=== PATIENT | female | born 1985 | race Caucasian/White ===

== ENCOUNTER 2019-12-18 16:03 | Outpatient (CLI) | payer OTHER, SELFPAY ==
--- NOTE | ~2019-12-18 | US_ITS ---
EXAMINATION: US OB <= 14 weeks fetus DATE: 12/18/2019 16:49 INDICATION: Uncertain dates. TECHNIQUE: Real-time transabdominal pelvic ultrasound was performed. COMPARISON: None. FINDINGS: The uterus measures 12.0 x 5.9 x 8.9 cm. There is an intrauterine gestational sac. The crown ru mp length measures 4.6 cm, which correlates with an estimated gestational age of 11 weeks and 2 day(s ) (+/-) 1 week(s) and 0 day(s). heart motion is identified measuring 157 beats per minute (bpm) by M-mode Doppler. The right ovary measures 4.1 x 2.3 x 3.2 cm. The left ovary measures 4.7 x 1.7 x 4.2 cm. There is no free fluid in the pelvis. IMPRESSION: 1. Single living intrauterine gestation with estimated date of delivery of 07/06/2020. Reviewed, dictated and finalized at location A. IMPRESSION: 1. Single living intrauterine gestation with estimated date of delivery of 07/06.
[2019-12-18 17:18] LABS: Hematocrit 36.8 % (37.0-47.0); Hemoglobin 12.2 g/dL (12.0-15.0); Mean Corpuscular HGB Conc 33.2 g/dl (32-36); Mean Corpuscular Hemoglobin 31.2 pg (26-34); Mean Corpuscular Volume 94.1 fl (80-100); Mean Platelet Volume 11.4 fl (7.4-10.4); Platelet Count Result 284 k/mm3 (150-375); Red Blood Count 3.91 M/mm3 (4.2-5.4); Red Cell Distribution Width 12.9 % (11.5-14.5); White Blood Count 16.7 K/mm3 (4.5-10.0)
[2019-12-18 18:10] LABS: HIV 1/2 Ab P24 Ag Result Negative (Negative)
[2019-12-18 19:51] LABS: Hepatitis B Surface Antigen Negative (Negative); Rubella IgG Antibody 66.6 IU/ML
[2019-12-21 11:12] LABS: Rapid Plasma Reagin Non-Reactive (NonReactive)
== END 2019-12-18 16:04 | disposition home or self-care (01) ==
PROVIDERS: Visit Provider Obstetrics & Gynecology
DX: Z36.89 Encounter for other specified antenatal screening (principal)
CPT/HCPCS: 36415; 76801; 85027; 86592; 86703; 86762; 86850; 86900; 86901; 87340; G0432

== ENCOUNTER 2020-02-09 16:39 | Outpatient (CLI) | payer OTHER, SELFPAY ==
--- NOTE | ~2020-02-09 | US_ITS ---
EXAMINATION: US OB /maternal detail DATE: 02/09/2020 18:00 INDICATION: anatomic survey. TECHNIQUE: Real-time ultrasound of the pelvis was performed. COMPARISON: Ultrasound 12/18/2019 FINDINGS: There is a single living fetus in variable presentation. The placenta is anterior. heart rate is 139 beats per minute (bpm). The amniotic fluid is subjectively normal. The following biometric data were obtained: Biparietal diameter (BPD): 4.1 cm; head circumference (HC): 15.7 cm; abdominal circumference (AC): 13 .0 cm; femur length (FL): 2.8 cm. These measurements are concordant. Estimated weight is 247 g +/- 37 g, which correlates with 30th percentile when 07/06/20 is used a s estimated date of delivery. As single measurements, these parameters are each equal to the following estimated gestational ages: BPD: 18 weeks 3 days. HC: 18 weeks 4 days. AC: 18 weeks 4 days. FL: 18 weeks 5 days. estimated gestational age based solely on measurements from this exam is 18 weeks 4 days +/- 1 weeks 2 days. The cerebral ventricles, cerebellum, cisterna magna, nuchal fold, and visualized portions of the spin e are normal. The heart is normal. The diaphragm, stomach, kidneys, and bladder are normal. There are two umbilical arteries to yield a 3-vessel cord. The nasal bone length is normal. The nose and lips are normal. The cord insertion is normal. IMPRESSION: 1. Single living fetus in variable presentation. 2. Estimated weight is 247 g +/- 37 g, which correlates with 30th percentile when 07/06/20 is us ed as estimated date of delivery. This date was set by ultrasound on 12/18/2019. 3. Normal anatomic survey. Reviewed, dictated and finalized at location B. STICS TECHNICIAN IMPRESSION: 1. Single living fetus in variable presentation. 2. Estimated weight is 247 g +/- 37 g, which correlates with 30th percen tile when 07/06/20 is used as estimated date of delivery. This date was set by vonnie argueta on 12/18/2019. 3. Normal anatomic survey.
== END 2020-02-09 16:40 | disposition home or self-care (01) ==
PROVIDERS: Visit Provider Obstetrics & Gynecology
DX: Z36.9 Encounter for antenatal screening, unspecified (principal); Z3A.18 18 weeks gestation of pregnancy
CPT/HCPCS: 76805

== ENCOUNTER 2020-03-30 07:16 | Outpatient (CLI) | payer OTHER, SELFPAY ==
[2020-03-30 08:53] LABS: Hematocrit 32.9 % (37.0-47.0); Hemoglobin 10.8 g/dL (12.0-15.0)
[2020-03-30 09:07] LABS: Glucose 1 Hour PP 50gm Dose 104 mg/dL
[2020-03-30 09:46] LABS: HIV 1/2 Ab P24 Ag Result Negative (Negative)
== END 2020-03-30 07:17 | disposition home or self-care (01) ==
PROVIDERS: Visit Provider Obstetrics & Gynecology
DX: Z34.92 Encounter for supervision of normal pregnancy, unspecified, second trimester (principal); Z3A.22 22 weeks gestation of pregnancy
CPT/HCPCS: 36415; 82947; 85014; 85018; 86703; G0432

== ENCOUNTER 2020-06-29 07:03 | Outpatient (CLI) | payer OTHER, SELFPAY ==
[2020-06-29 07:45] VITALS: BP 109/72; PULSE 88
[2020-06-29 08:00] VITALS: BP 104/77; PULSE 82
[2020-06-29 08:15] VITALS: BP 111/77; PULSE 89
[2020-06-29 08:30] VITALS: BP 113/71; PULSE 88
[2020-06-29] MEDS: TERBUTALINE SULFATE 1 MG/ML VIAL 0.25 MG SUB-Q (08:55)
--- NOTE | 2020-06-29 09:13 | WPDOBADMIT ---
Obstetrics - Admit Note Admission Note: record reviewed. Additions to the history and/or subsequent changes in the physical findings follow. 34 y/o G1 at 39 weeks with breech presentation, here for ECV. AVSS NST reactive TOCO: no contractions ABD soft, notnender, gravid EXT nontender Bedside ultrasound shows xochitl breech presentation with head on maternal left, fundal placenta, adequate AFV. Procedure: After appropriate informed consent was obtained, she received terbutaline 0.25 mg SC x 1. ECV was attempted. The breech was elevated out of the maternal pelvis and a forward (counterclockwise) somersault was attempted, followed by a reverse somersault, then forward again. The cardiac motion was normal throughout. No significant change in the lie was accomplished. The procedure was terminated. She was observed on L&D on NST for 30 min, then sent home to schedule a primary delivery next week. We reviewed instructions and precautions in detail. She tolerated the procedure well today.
[2020-06-29 09:15] VITALS: BP 105/84; PULSE 79
[2020-06-29 09:30] VITALS: BP 122/65; PULSE 85
== END 2020-06-29 09:50 | disposition home or self-care (01) ==
LOC: ANHOBOP 07:06 → ANHOBPP 07:09
PROVIDERS: Visit Provider Obstetrics & Gynecology
DX: O32.1XX0 Maternal care for breech presentation, not applicable or unspecified (principal); Z3A.39 39 weeks gestation of pregnancy
CPT/HCPCS: 99199; J3105

== ENCOUNTER 2020-07-05 12:18 | Outpatient (CLI) | payer OTHER, SELFPAY ==
[2020-07-05 13:05] LABS: Hematocrit 36.3 % (37.0-47.0); Mean Corpuscular HGB Conc 33.1 g/dl (32-36); Mean Corpuscular Hemoglobin 29.8 pg (26-34); Mean Corpuscular Volume 90.1 fl (80-100); Mean Platelet Volume 11.8 fl (7.4-10.4); Platelet Count Result 217 k/mm3 (150-375); Red Blood Count 4.03 M/mm3 (4.2-5.4); Red Cell Distribution Width 13.7 % (11.5-14.5); White Blood Count 11.8 K/mm3 (4.5-10.0)
[2020-07-05 13:55] LABS: Rapid Plasma Reagin Non-Reactive (NonReactive)
== END 2020-07-05 12:19 | disposition home or self-care (01) ==
PROVIDERS: Visit Provider Obstetrics & Gynecology
DX: Z34.93 Encounter for supervision of normal pregnancy, unspecified, third trimester (principal); Z3A.00 Weeks of gestation of pregnancy not specified
CPT/HCPCS: 36415; 85027; 86592; 86850; 86900; 86901

== ENCOUNTER 2020-07-06 08:35 | Inpatient (IN) | payer OTHER, SELFPAY ==
[2020-07-06] VITALS (46 sets, daily range): BP systolic 92–126; BP diastolic 29–80; PULSE 47–97; RESP 12–18; TEMP 36.1–36.8; O2SAT 97–100; BMI 30.8
--- NOTE | 2020-07-06 08:35 | LDADM ---
This patient, Jody Briceño, was admitted to Labor/Delivery/Recovery 120 on 07/06/20 at 08:35. Plans for labor, pain management and were discussed with patient. Patient/family oriented to hospital policies and general routines including ID bracelet, bed and alarms, visiting hours, pain management, procedures, bathroom and other care routines, personal items, smoking policy, room service/diet and guest tray routines, infant security routines, and visiting hours. Patient/Family are encouraged to report perceived risks to care and to ask questions if they do not understand what they are told or what they should do. See OBIX for further documentation.
[2020-07-06] MEDS: LACTATED RINGERS 1,000 ML 125 ML IV CONT ×3 (09:38→12:26)
[2020-07-06] MEDS: ceFAZolin 2 GM/D5W 50 ML 2 GM/50 ML BAG IVPB (10:25)
--- NOTE | 2020-07-06 10:43 | WPDANESEPPF ---
Anes - Initial Pre Proc Eval Procedure: Operation Date: 07/06/20 10:30 Proposed Procedures p Primary Section - Devan Campo MD Date/Time: 07/06/20 10:43 Surgeon: Devan Campo MD Pre Op Diagnosis: c/s Patient Data Age: 34 Gender: F Height: 5 ft 3 in Weight: 79 kg Last Vital Signs Pulse 85 07/06/20 09:04 BP 126/80 07/06/20 09:04 Allergies Allergy/AdvReac Type Severity Reaction Status Date / Time Penicillins Allergy Intermediate Rash Verified 06/08/20 12:46 Home Medications Medication Instructions Recorded Confirmed Type PNV cmb#95-ferrous fumarate-FA 1 tablet PO DAILY 07/06/20 07/06/20 History [] magnesium 1 tablet PO DAILY 07/06/20 07/06/20 History Laboratory Tests 07/06/20 09:27 HIV 1&2 Ab/P24 Ag 4thGn Pending Patient hx anesthesia problems: none Family hx anesthesia problems: none PMFSH Family History Family History Other Unknown family medical history Social History Social History Smoking status: Never smoker Second hand tobacco smoke exposure: Yes Substance use: never Spiritual care concerns: No Anes - Eval Final PreProcedure Day of Procedure 07/06/20 10:43 Patient weight: overweight Heart: regular rate and rhythm Lungs: clear to auscultation Airway: Mallampati scale class II Neurological: alert and oriented Last oral intake: >/= 8 hours ASA classification: II Emergent: no Anesthetic plan: proceed Anesthesia type and monitoring: regional spinal and standard monitoring Informed Consent: The patient's anesthetic plan and its attendant risks and benefits were discussed with the patient/family/POA. Questions were solicited and answers provided to the satisfaction of the patient/family/POA.
[2020-07-06 10:55] LABS: HIV 1/2 Ab P24 Ag Result Negative (Negative)
--- NOTE | 2020-07-06 11:15 | P.HP_ITS ---
H&P: HPI History of Present Illness Date/Time: 07/06/20 11:15 34 y/o G1 at 40 weeks with xochitl breech presentation. ECV failed last week. She is here for scheduled . GBS neg. Chief Complaint: Here for c section Review of Systems Review of Systems: All systems reviewed & are unremarkable except as noted in HPI and below PMFSH Family History Family History Other Unknown family medical history Social History Social History Smoking status: Never smoker Second hand tobacco smoke exposure: Yes Substance use: never Spiritual care concerns: No Meds Home Medications and Allergies Home Medications Medication Instructions Recorded Confirmed Type PNV cmb#95-ferrous fumarate-FA 1 tablet PO DAILY 07/06/20 07/06/20 History [] magnesium 1 tablet PO DAILY 07/06/20 07/06/20 History Allergies Allergy/AdvReac Type Severity Reaction Status Date / Time Penicillins Allergy Intermediate Rash Verified 06/08/20 12:46 Vital Signs Vital Signs - 24 hr 07/06/20 09:04 Pulse Rate 85 Blood Pressure 126/80 Exam Const: Orientation/consciousness: patient oriented x3 Other: Well- developed, well-nourished female in no acute distress. Neck: Thyroid: thyroid normal Lymphatic: no lymphadenopathy noted (in neck, axilla or inguinal nodes) Resp: Effort & Inspection: normal respiratory effort Auscultation: clear to auscultation bilaterally Cardio: Rate: regular rate Rhythm: regular rhythm Heart sounds: S1 normal heart sound present and S2 normal heart sound present GI: Other: ABD: Soft, nontender, gravid NST reactive. TOCO: no contractions. No guarding or rebound tenderness. No hepatosplenomegaly. Bedside ultrasound exam confirms breech presentation. : General: Yes no CVA tenderness Other: Cervix: ft/thick Back/Spine/Pelvis: Back: no CVA tenderness Skin: General skin exam: normal color and no rashes or lesions noted Neuro: General: patient oriented x3 Extrem: Other: Extremities: nontender with no edema Psych: Mental Status: mental status grossly normal Affect: normal affect Assessment and Plan Assessment and plan (1) Breech presentation: Code(s): O32.1XX0 - Maternal care for breech presentation, not applicable or unspecified Status: Acute Assessment and Plan: A: IUP at 40 weeks with persistent breech presentation. P: Offered primary delivery. She understands risks of surgery to include risks of anesthesia, risks of pain, infection, bleeding, blood products, thromboembolic phenomena and damage to adjacent structures such as bowel, bladder, ureters, blood vessels and nerves. She understands all these risks and elects to proceed with surgery.
--- NOTE | 2020-07-06 11:18 | WPDHPUPDATE1 ---
History and Physical Update Update Date/Time: 07/06/20 11:18 History and Physical has been reviewed, including an updated exam of the patient. There are NO changes in the patient's condition. Risks, benefits, and alternatives have been discussed and questions answered. Patient agrees to proceed with procedure.
--- NOTE | 2020-07-06 12:06 | P.PCNOB_ITS ---
OB - Delivery Note Procedure Delivery date: 07/06/20 Procedure: Procedures Operation Date: 07/06/20 10:30 <No data on this case meets the specified criteria> Primary low transverse delivery Delivery monitor: external FHT and external uterine Route of delivery: Specimen: Yes (cord blood) Quantitative Blood Loss (ml): 380 Anesthesia type: Spinal Disposition: PACU Complications: None Narrative: The patient was taken to the operating room where she was prepared and draped in the usual sterile fashion in dorsal supine position with a leftward tilt. She received cefazolin preoperatively. Spinal anesthesia was found to be adequate. A Pfannenstiel skin incision was made and carried through to the underlying layer of the fascia. The fascia was incised in the midline and the incision was extended laterally. The fascia was dissected free of the underlying rectus muscles. The rectus muscles were in the midline. The peritoneum was identified, tented up and entered sharply. The peritoneal incision was extended superiorly and inferiorly with good visualization of the bladder. The bladder blade was placed. The vesicouterine peritoneum was identified, tented up and entered sharply. The incision was extended laterally and the bladder flap was developed. The bladder blade was replaced. The uterus was then incised sharply in a transverse fashion along the lower uterine se gment. The incision was extended laterally. The infant's breech was delivered to the level of the scapulae. The arms were swept across the chest and delivered. The head was gently flexed and easily delivered. The nose and mouth were bulb suctioned. After a delay, the cord was clamped and cut. The infant was handed off the field. Cord blood was collected. The placenta was removed manually and was passed off the field. The uterus was exteriorized and cleared of all clots and debris. The uterine incision was reapproximated using 0 Monocryl in a running, locked fashion. A second, imbricating layer of the same suture was placed in a running fashion. Excellent hemostasis resulted as did excellent reapproximation of the normal anatomy. The uterus was returned the abdomen. The pelvis was irrigated copiously with warmed normal saline. Rigorous hemostasis was assured. The fascial layer was reapproximated using 0 Vicryl in a running fashion. The skin was closed with a running, subcuticular stitch of 4 0 Vicryl. Dermaflex was applied externally. Sponge, lap, needle and instrument counts were correct. The patient was taken to the recovery room in stable condition. The infant went to the nursery in stable condition. I was present and scrubbed the entire procedure. [place] Baby Date of : 07/06/20 Time of : 11:37 Weeks of gestation at delivery: 40 Infant gender: Female Weight (pounds): 7 Weight (ounces): 15 presentation: xochitl breech Placenta delivery description: Manual Removal and Normal Configuration cord vessel description: 3 Vessels and Delayed Cord Clamping score one minute: 9 score five minutes: 9
--- NOTE | 2020-07-06 12:09 | PM.OBDSVD ---
DS: Admitting Diagnosis Admitting Diagnosis Admitting Diagnosis: IUP at 40 weeks Persistent xochitl breech presentation DS: Discharge Diagnosis Discharge Diagnosis (1) Breech presentation: Code(s): O32.1XX0 - Maternal care for breech presentation, not applicable or unspecified Status: Acute OB - DS: Summary OB Procedures : Ultrasound OB Procedures Intrapartum: OB Procedures: : None Peripartum Data Procedures: Procedures Operation Date: 07/06/20 10:30 <No data on this case meets the specified criteria> Primary low transverse delivery DS: Data Data Completed and Pending Labs on day of discharge: Labs from last 24 hours 07/06/20 09:27 HIV 1&2 Ab/P24 Ag 4thGn Negative Discharge Plan Discharge Attending physician on discharge: Devan Campo Consulting providers: Ramos Desouza Discharging Clinician: Devan Campo Patient Disposition: Home, Self-Care Activity: may shower, may drive after 2 weeks and pelvic rest Diet: regular Wound Care Instructions: incision open to air Discharge Instructions: Education: Mom and Baby Guide Given to: Mother Follow-Up: Call your delivering provider's office for an appointment to be seen in: 4 Weeks Mom and baby should come to the [facility] for the follow-up appointment. Appointment Date/Time: July 11, 2020 at 10:00 am What to expect at your follow-up visit: Blood Pressure Check Physical Assessment Call [phone] if you are unable to keep your appointment time. BREAST CARE: * Wear a snug supportive bra. * For engorgement discomfort: Breast Feeding: * Apply warm moist washcloths * Express milk as needed to relieve engorgement * Wear loose clothing * For sore nipples: * Identify correct latch-on * Apply warm moist washcloths before and after nursing * Air dry nipples after nursing * May apply Lansinoh cream to nipples ABDOMINAL INCISION: (if applicable) * Allow incision to air dry * Do NOT use lotions for powders on your incision * When showering, allow soap and water to run over the incision, but do not wash incision EPISIOTOMY/PERINEAL CARE: * Until bleeding stops, use your mata bottle after urinating * Change your pad frequently throughout the day * No tub baths until seen by your physician - You may shower ACTIVITY: * Rest as much as possible. * Do not exercise or lift anything heavier than your baby (such as laundry or other children.) For about 2 weeks * Avoid stairs or driving as much as possible. Do not drive while taking * Do not put anything into the vagina. No douching, tampons, or sexual activity until seen by physician. NOTIFY PHYSICIAN IF YOU HAVE ANY QUESTIONS OR IF ANY OF THE FOLLOWING SYMPTOMS OCCUR: * If your incision becomes red, swollen, or more painful than what you have experienced in the hospital. * If your vaginal bleeding becomes foul smelling. * If your vaginal bleeding becomes more heavy than a period or if your bleeding changes from pink to bright red. However, you may pass an occasional walnut-sized clot once or twice for the first week . * If you experience a sharp, shooting pain in your calves. * If you discover a hard, reddened area on your breast or if you experience flu-like symptoms. DIET: * Eat regular, well-balanced meals. * Drink plenty of fluids daily. If , drink to thirst. Call or return if temperature above 100.4? F, increased abdominal pain, increased vaginal bleeding or any new problems. Patient Instructions: (DC) Stand Alone Forms: General Discharge Information Follow-up/Referrals: Devan Campo MD [Physician] - 4 Weeks Discharge Medications: New ibuprofen 600 mg tablet 600 mg PO Q6H PRN (Reason: cramps) Qty: 30 RF: 0 hydrocodone-acetaminophen 5-325 mg tablet
[2020-07-06] MEDS: KETOROLAC 30 MG/ML VIAL (*BKC) IV PUSH ×2 (13:56→19:59)
[2020-07-06] MEDS: OXYTOCIN 30 UNITS/NS 500 ML 30 UNITS/500 ML BAG 125 UNITS IV CONT (14:02)
[2020-07-06] MEDS: ONDANSETRON INJ 4 MG/2 ML VIAL IV PUSH ×2 (15:01→19:59)
[2020-07-06] MEDS: diphenhydrAMINE HCl INJ 50 MG/ML VIAL 25 MG IV PUSH ×2 (15:38→20:00)
--- NOTE | 2020-07-06 16:45 | OBPPTRN ---
1428 Patient transferred to post room # 282 via stretcher. Support person present. Oriented to unit, room, information board, rooming in, admission packet and security measures. Patient verbalizes understanding.
[2020-07-06] MEDS: HYDROcodone/acetaminophen (*CRX) 5-325 MG TABLET 1 TAB PO (16:52)
[2020-07-06] MEDS: DEXTROSE 5%/0.45% SOD CHL 1,000 ML 125 ML IV CONT (18:32)
--- NOTE | 2020-07-06 23:30 | PC.NURSE ---
Breast pump provided due to ineffective feeding. Instructions given on breast pump care and usage, pumping schedule, nipple care, and collection and storage of breast milk. Encouraged [id number], breast massage and manual expression to stimulate supply. Pumping log provided and reviewed. Assessed patient for correct flange size, placement and draw. Patient verbalizes and demonstrates understanding of instructions.
[2020-07-07 03:40] VITALS: BP 101/61; PULSE 79; RESP 18; TEMP 36.7
[2020-07-07] MEDS: KETOROLAC 30 MG/ML VIAL (*BKC) IV PUSH (03:40)
[2020-07-07] MEDS: HYDROcodone/acetaminophen (*CRX) 5-325 MG TABLET 1 TAB PO ×6 (03:41→21:31)
[2020-07-07 05:40] LABS: Basophils Percent Auto 0.2 % (0.2-1.2); Eosinophils Percent Auto 0.2 % (0-4.4); Hematocrit 34.2 % (37.0-47.0); Immature Granulocyte Absolute 0.12 K/mm3 (0.00-0.031); Immature Granulocyte Percent A 0.7 % (0-0.5); Lymphocytes Absolute Auto 2.25 K/mm3 (0.9-3.2); Lymphocytes Percent Auto 12.7 % (18.3-44.2); Mean Corpuscular HGB Conc 32.2 g/dl (32-36); Mean Corpuscular Hemoglobin 29.5 pg (26-34); Mean Corpuscular Volume 91.7 fl (80-100); Mean Platelet Volume 11.5 fl (7.4-10.4); Monocytes Absolute Auto 0.7 K/mm3 (0.1-0.6); Monocytes Percent Auto 3.9 % (2.6-8.5); Neutrophils Absolute Auto 14.6 K/mm3 (1.3-6.7); Neutrophils Percent Auto 82.3 % (45.5-73.1); Platelet Count Result 183 k/mm3 (150-375); Red Blood Count 3.73 M/mm3 (4.2-5.4); Red Cell Distribution Width 13.7 % (11.5-14.5); White Blood Count 17.8 K/mm3 (4.5-10.0)
--- NOTE | 2020-07-07 07:43 | WPDANLDPN2 ---
Anes-Prog Note L&D Date/Time: 07/07/20 07:43 Comfortable throughout: section Neuraxial method: spinal Epidural/Spinal procedure site: clean & non-tender Neuro status: Neuro function grossly intact. Cardiovascular status: normal Respiratory status: normal Airway patency: baseline Mental status: baseline Post-Op hydration status: normal Vital Signs: Last Vital Signs Temp 36.7 C 07/07/20 03:40 Pulse 79 07/07/20 03:40 Resp 18 07/07/20 03:40 BP 101/61 07/07/20 03:40 Pulse Ox 100 07/06/20 23:15 Pain score (VAS): 3 I/O: Intake & Output 07/06/20 07/06/20 07/07/20 15:59 23:59 07:59 Intake Total 2150 250 1000 Output Total 1023 850 550 Balance 1127 -600 450 Post-procedural complaints: none Patient feedback: Patient satisfied with anesthetic care.
--- NOTE | 2020-07-07 07:43 | WPDANLDNPN2 ---
Anes-Prog Note L&D-Neuraxial Date/Time: 07/07/20 07:43 Neuraxial medications: intrathecal PF morphine Opiod-related complaints: none Patient feedback: Patient satisfied with post-operative pain management.
[2020-07-07 08:30] VITALS: BP 110/64; PULSE 75; RESP 18; TEMP 36.3; O2SAT 100
[2020-07-07] MEDS: DOCUSATE SODIUM 100 MG CAPSULE PO ×2 (08:57→17:01)
[2020-07-07] MEDS: MULTIVIT/MIN/PREN/FOL AC/IRON TABLET 1 TAB PO (08:57)
--- NOTE | 2020-07-07 10:00 | PC.NURSE ---
Consult with pt.,mother reports infant has been sleepy and not latching, she has initiated pumping and supplementation. Infant would use a nipple shield for attempts. Mother states has latched for the last two feeding without shield. Mother is pumping without difficulties or discomfort using hospital pump. Reviewed infants may be sleepy the first few days and will begin to show increased feeding cues and eagerness for feeding after 24 hours. Mother states she will continue to supplement and pump until she is more comfortable with infant feeding consistence. Reviewed infant feeding cues, frequencies, duration of feedings, feeding elimination flow sheet, and signs of adequate intake. Nipple care reviewed. Instructed mother to call out for RN assistance if she is unable to latch for feeding or she has discomfort with nursing. Instructed feeding should be initiated three hours from start of last feeding or if feeding cues are noted before. Mother voiced understanding of information shared.
[2020-07-07] MEDS: IBUPROFEN 600 MG TABLET PO ×3 (11:18→23:45)
--- NOTE | 2020-07-07 12:59 | PM.OBPNVD ---
OB - PN: Subj Subjective Date/time seen: 07/07/20 12:59 Narrative: Pain OK. Tolerating diet. OB - PN: Obj Data Labs CBC & Chem 7: 07/07/20 04:38 Labs: Laboratory Results - last 24 hr 07/07/20 04:38 WBC 17.8 H RBC 3.73 L Hgb 11.0 L Hct 34.2 L MCV 91.7 MCH 29.5 MCHC 32.2 RDW 13.7 Plt Count 183 MPV 11.5 H Immature Gran % (Auto) 0.7 H Neut % (Auto) 82.3 H Lymph % (Auto) 12.7 L [place] % (Auto) 3.9 Eos % (Auto) 0.2 Baso % (Auto) 0.2 Lymph # (Auto) 2.25 [place] # (Auto) 0.7 H Eos # (Auto) 0.0 Baso # (Auto) 0.0 Abs Immat Gran (auto) 0.12 H Absolute Neuts (auto) 14.6 H Absolute Nucleated RBC 0.0 Nucleated RBC % 0.0 OB - PN A/P Plan Comments: A: POD#1, doing well. P: Routine care. Exam Narrative: Exam Narrative: AVSS I/O OK ABD soft, nontender, fundus firm. Incision c/d/i. EXT nontender
[2020-07-07] MEDS: SIMETHICONE 80 MG TAB.CHEW PO (17:01)
[2020-07-07 20:30] VITALS: BP 113/60; PULSE 82; RESP 16; TEMP 36.3
[2020-07-08] MEDS: HYDROcodone/acetaminophen (*CRX) 10-325 MG TABLET 1 TAB PO ×5 (01:05→17:06)
[2020-07-08] MEDS: IBUPROFEN 600 MG TABLET PO ×3 (05:50→20:15)
--- NOTE | 2020-07-08 07:22 | P.PNOB_ITS ---
OB - PN: Subj Subjective Date/time seen: 07/08/20 07:22 Interval history: Patient is tearful this AM. She states she is sleep deprived and has not gotten much rest. She is ambulating. She is tolerating PO. She reports some mild incision pain. Her bleeding is normal and she reports normal lochia. She denies fever, chills, N/V. She has passed flatus. Patient comments: no complaints and pain well controlled; no flatus present OB - PN: Obj Data Labs CBC & Chem 7: 07/07/20 04:38 OB - PN A/P Plan day: 1 Plan: routine care Comments: patient tearful and tired this AM pt is requesting to stay a whole 4 nights, will re-evaluate tomorrow AM continue routine PP care Time Spent With Patient Time: Total time spent is greater than 50% in coordination of care (as do cumented) at patient's floor/unit and/or counseling patient: Time with patient: less than 15 minutes Review of Systems Constitutional: Constitutional: Reports no additional constitutional complaints Cardiovascular: Cardiovascular: Reports no additional cardiovascular c omplaints Respiratory: Respiratory: Reports no additional respiratory complaints Gastrointestinal: Gastrointestinal: Reports no additional gastrointestinal complaints Genitourinary: Genitourinary: Reports no additional female genitourinary complaints Exam Const: General: comfortable and no acute distress Resp: Effort & Inspection: normal respiratory effort Auscultation: clear to auscultation bilaterally Cardio: Rate: regular rate GI: GI Palp: Yes Soft to palpation and Yes Tenderness to palpation present (GI) (appropriately tender around incision ) Auscultation: normal bowel sounds Other: fundus firm and below umbilicus Incision C/D/I Urinary Catheter: Urinary Catheter: urine clear Psych: Appearance: grossly normal Mental Status: mental status grossly normal Affect: normal affect
--- NOTE | 2020-07-08 07:30 | PC.NURSE ---
PT introductions made and plan of care discussed per post op c section, pain management, breast feeding, daily care activities. PT tearful saying she had a rough night and was unable to sleep. PT encouraged to nap today, shower and put her own clothes on and walk halls. PT supported in her emotions being sad and tired and overwhelmed and offered assistance to watch baby through out the day for napping and shower etc. and explained hormonal changes and milk supply coming in. PT talkative and eating breakfast and states she is feeling better . Education today will be one to one using discussion and mother baby guide. no barriers to learning noted. PT verbalized understanding
[2020-07-08 08:40] VITALS: BP 109/75; PULSE 75; RESP 18; TEMP 36.4; O2SAT 99
[2020-07-08] MEDS: DOCUSATE SODIUM 100 MG CAPSULE PO ×2 (10:20→17:06)
[2020-07-08] MEDS: SIMETHICONE 80 MG TAB.CHEW PO ×4 (10:22→20:15)
[2020-07-08 10:30] VITALS: PULSE 75; RESP 18; O2SAT 99
--- NOTE | 2020-07-08 14:39 | PC.NURSE ---
Addendum entered by Lesa Lucas RN 07/08/20 14:43: pt seen at 0815 Original Note: Consult with pt., mother is very teary today. Mother states infant has been able to independently latch infant without nipple shield. Mother requested to nursing during the night to be bottle fed so she could rest. Mother states she feels very guilty about this and was unable to sleep and had nightmares. Assured mother she is normal and tired. Assured mother was fine and she needed rest and can nurse today if she chooses. Suggested mother have breakfast, rest and allow infant to nursery for her to sleep. Reviewed infant is WNL on all signs of weight, output and jaundice at this time.
[2020-07-08] MEDS: MULTIVIT/MIN/PREN/FOL AC/IRON TABLET 1 TAB PO (19:19)
[2020-07-08 20:00] VITALS: BP 110/63; PULSE 83; RESP 16; TEMP 36.8
[2020-07-08] MEDS: HYDROcodone/acetaminophen (*CRX) 5-325 MG TABLET 1 TAB PO ×2 (20:15→23:45)
[2020-07-09] MEDS: IBUPROFEN 600 MG TABLET PO ×2 (02:25→09:28)
[2020-07-09] MEDS: HYDROcodone/acetaminophen (*CRX) 5-325 MG TABLET 1 TAB PO ×2 (02:25→05:55)
[2020-07-09 08:00] VITALS: BP 125/80; PULSE 77; RESP 16; TEMP 36.8; O2SAT 100
--- NOTE | 2020-07-09 08:12 | P.DS_ITS ---
DS: Admitting Diagnosis Admitting Diagnosis Admitting Diagnosis: intrauterine at term OB - DS: Summary OB Procedures : None OB Procedures Intrapartum: OB Procedures: : None Peripartum Data Infant Delivery Method: Section Procedures: Procedures Operation Date: 07/06/20 10:30 Actual Procedures Side Surgeon p Primary Section Not Applicable Devan Campo MD complications: none Status at Discharge Functional status at discharge: independent ambulation Overall status at discharge: patient is progressing back to baseline Time Spent with Patient Time attestation: Total time spent providing and/or coordinating discharge services: Time spent: Less than 30 minutes Exam Const: General: comfortable and no acute distress Resp: Effort & Inspection: normal respiratory effort Auscultation: clear to auscultation bilaterally Cardio: Rate: regular rate GI: Inspection: non-distended GI Palp: Yes Soft to palpation, No Firmness to palpation present (GI), Yes Tenderness to palpation present (GI) (mild tenderness over incision ) and No Guarding due to palpation present (GI) Auscultation: normal bowel sounds Psych: Appearance: grossly normal Mental Status: mental status grossly normal Discharge Plan Discharge Attending physician on discharge: eDvan Campo Discharging Clinician: Devan Campo Patient Disposition: Home, Self-Care Activity: may shower, may drive after 2 weeks and pelvic rest Diet: regular Wound Care Instructions: incision open to air Discharge Instructions: Call or return if temperature above 100.4? F, increased abdominal pain, increased vaginal bleeding or any new problems. Stand Alone Forms: General Discharge Information Follow-up/Referrals: Devan Campo MD [Physician] - 4 Weeks Discharge Medications: New ibuprofen 600 mg tablet 600 mg PO Q6H PRN (Reason: cramps) Qty: 30 RF: 0 hydrocodone-acetaminophen 5-325 mg tablet 1 - 2 tablet PO Q6H PRN (Reason: pain) Qty: 30 RF: 0 acetaminophen [Mapap (acetaminophen)] 325 mg Tablet 650 mg PO Q6H PRN (Reason: Mild Pain (1-3)) Qty: 30 RF: 0 ibuprofen 600 mg Tablet 600 mg PO Q6H PRN (Reason: Cramping) Qty: 30 RF: 0 Continued magnesium Tablet 1 tablet PO DAILY RF: 0 PNV cmb#95-ferrous fumarate-FA [] 28 mg iron- 800 mcg Tablet 1 tablet PO DAILY RF: 0 Date of admission: 07/06/20 08:35 Primary Care Provider: PHYSICIAN,[facility] Admitting Provider: Devan Campo Attending physician on admission: Devan Campo Condition: Stable
[2020-07-09] MEDS: DOCUSATE SODIUM 100 MG CAPSULE PO (09:28)
[2020-07-09] MEDS: MULTIVIT/MIN/PREN/FOL AC/IRON TABLET 1 TAB PO (09:28)
[2020-07-09] MEDS: SIMETHICONE 80 MG TAB.CHEW PO (09:28)
[2020-07-09] MEDS: HYDROcodone/acetaminophen (*CRX) 10-325 MG TABLET 1 TAB PO (09:29)
[2020-07-11 10:10] VITALS: BP 115/81; PULSE 87; RESP 16; TEMP 36.9; O2SAT 100
== END 2020-07-09 13:35 | disposition home or self-care (01) | DRG 788 ==
LOC: ANHLDR 12:10 → ANHOB2 07-09 08:28 → ANHLDR 07-12 09:57 → ANHOB2 07-12 09:57
PROVIDERS: Admitting Provider Obstetrics & Gynecology; Visit Provider Student in an Organized Health Care Education/Training Program
PROC: 10D00Z1 Extraction of Products of Conception, Low, Open Approach (ICD-10-PCS; CPT 59514; principal; 2020-07-06 10:30)
DX: O32.1XX0 Maternal care for breech presentation, not applicable or unspecified (principal); G89.18 Other acute postprocedural pain; Z3A.40 40 weeks gestation of pregnancy; Z37.0 Single live birth
CPT/HCPCS: 36415; 85025; 86703; A9270; G0432; J0131; J0690; J1200; J1885; J2274; J2370; J2405; J2590; J7120

== ENCOUNTER 2021-02-21 09:18 | Emergency (ER) | payer OTHER, SELFPAY ==
[2021-02-21 09:29] VITALS: BP 119/76; PULSE 73; RESP 18; TEMP 37.1; O2SAT 100
--- NOTE | 2021-02-21 10:31 | ED.URI ---
HPI - URI/Sore Throat General Chief Complaint: Upper Respiratory Infection Stated Complaint: Congestion Time Seen by Provider: 02/21/21 10:32 Source: patient and RN notes reviewed Mode of arrival: ambulatory Limitations: no limitations History of Present Illness HPI Narrative: 35-year-old female presents concern for hoarse voice, nasal drainage, intermittent cough. Reports 1 week history of symptoms. Reports taking evpp-bny-debimys medication with relief of symptoms, however she continues to have a hoarse voice. She has been vaccinated for Covid. She denies shortness of breath, body aches, chills, fever, sweats, nausea, vomiting, diarrhea. MD elicited complaint: cough Related Data Home Medications Medication Instructions Recorded Confirmed PNV cmb#95-ferrous fumarate-FA 1 tablet PO DAILY 07/06/20 07/06/20 [] Iud 02/21/21 fluoxetine [Prozac] 10 mg PO DAILY 02/21/21 02/21/21 Allergies Allergy/AdvReac Type Severity Reaction Status Date / Time Penicillins Allergy Intermediate Rash Verified 06/08/20 12:46 Review of Systems Review of Systems: CONSTITUTIONAL: Denies malaise, chills, sweats, or fever. EYES: Denies visual changes, redness, or discharge. ENT: Reports rhinorrhea, congestion, hoarse voice. Denies sinus pain, otalgia and sore throat. CARDIOVASCULAR: Denies chest pain, palpitations, or edema. RESPIRATORY: Reports occasional cough. Denies dyspnea. GASTROINTESTINAL: Denies abdominal pain, nausea, vomiting, diarrhea SKIN: Denies rash or itching. MUSCULOSKELETAL: Denies myalgia. NEUROLOGIC: Denies headache. All systems reviewed & are unremarkable except as noted in HPI and below PMFSH Family History Family History Other Unknown family medical history Social History Social History Smoking status: Never smoker Second hand tobacco smoke exposure: Yes Substance use: never Spiritual care concerns: No Comments At time of signature, agree with nursing past medical, surgical, social and family history. There is no relevant family history pertinent to the presenting complaint Exam Narrative: GENERAL: Well-appearing, well-nourished, and in no acute distress. HEAD: Normocephalic EYES: PERRLA, conjunctivae clear ENT: Nares clear. Mucous membranes moist. TM pearly yepez with sharp light reflex bilaterally; no tragal tenderness. Oropharynx not erythematous without lesions. Tonsils not enlarged and without exudate, no drooling, no hoarseness, no trismus, uvula midline. NECK: Supple. No lymphadenopathy CHEST: Clear to auscultation, breath sounds equal. No wheezing, rhonchi, rales, or stridor. No respiratory distress, speaks in full sentences. HEART: Regular rate and rhythm. No murmur heard. SKIN: Warm, dry, no rash. NEURO: Alert and oriented x3. PSYCH: Normal mood and affect Course Course Emergency Course: Patient is aware of diagnosis, understands and agrees to treatment plan. Anticipatory guidance given. Patient agrees to follow-up as directed and is aware of reasons to seek care at the emergency department. Portions of this record may have been created with voice recognition software Vital Signs Vital signs: Vital Signs Temperature 98.8 F 02/21/21 09:29 Pulse Rate 73 02/21/21 09:29 Respiratory Rate 18 02/21/21 09:29 Blood Pressure 119/76 02/21/21 09:29 Pulse Oximetry 100 02/21/21 09:29 Temperature 98.8 F 02/21/21 09:29 Pulse Rate 73 02/21/21 09:29 Respiratory Rate 18 02/21/21 09:29 Blood Pressure 119/76 02/21/21 09:29 Pulse Oximetry 100 02/21/21 09:29 Reviewed. MDM - URI/Sore Throat MDM Narrative Medical decision making narrative: Differential diagnosis considered: Prescott virus, strep pharyngitis, allergic rhinitis, upper respiratory tract infection, sinusitis, rhinosinusitis, nasopharyngitis. viral pharyngitis, otitis media, otitis externa, p
== END 2021-02-21 10:43 | disposition home or self-care (01) ==
PROVIDERS: Emergency Provider Nurse Practitioner
DX: J04.0 Acute laryngitis (principal); E28.2 Polycystic ovarian syndrome; F43.10 Post-traumatic stress disorder, unspecified
CPT/HCPCS: 99213; G0463

== ENCOUNTER 2021-10-10 08:23 | Emergency (ER) | payer OTHER, SELFPAY ==
--- NOTE | 2021-10-10 08:29 | ED.URI ---
HPI - URI/Sore Throat General Chief Complaint: Upper Respiratory Infection Stated Complaint: sore throat Time Seen by Provider: 10/10/21 08:39 Source: patient, family, RN notes reviewed and old records reviewed Mode of arrival: ambulatory Limitations: no limitations History of Present Illness HPI Narrative: 36-year-old female presents to the [facility] with a sore throat. Has had allergy symptoms for the last month. Woke up this morning with a worsening sore throat. Last week she states that she has had pharyngitis/laryngitis due to taking Mucinex. Has taken ibuprofen and her allergy medications. Denies fevers. No chest pain or abdominal pain. Onset (ago): week(s) Related Data Home Medications Medication Instructions Recorded Confirmed vit no.95-ferrous 1 tablet PO DAILY 07/06/20 10/10/21 fumarate 28 mg-folic acid 800 mcg tablet () Allergies Allergy/AdvReac Type Severity Reaction Status Date / Time Penicillins Allergy Intermediate Rash Verified 10/10/21 08:39 Review of Systems Review of Systems: All systems reviewed & are unremarkable except as noted in HPI and below Constitutional: Constitutional: Reports no additional constitutional complaints, Denies chills, Denies fever(s) and Denies headache(s) Eyes: Eyes: Reports no additional eye complaints ENT: Reports as per HPI, Denies vertigo, Denies dizziness, Denies headache(s), Denies nasal congestion and Reports sore throat Cardiovascular: Cardiovascular: Reports no additional cardiovascular complaints, Denies chest pain, Denies syncope, Denies rapid heart rate and Denies dyspnea Respiratory: Respiratory: Reports no additional respiratory complaints, Denies cough, Denies dyspnea and Denies wheezing Gastrointestinal: Gastrointestinal: Reports no additional gastrointestinal complaints, Denies abdominal pain, Denies diarrhea, Denies nausea and Denies vomiting Musculoskeletal: Musculoskeletal: Reports no additional musculoskeletal complaints and Denies numbness Integumentary/Breasts: Skin/Breast: Reports system reviewed and no additional complaints, except as docu Neurologic: Reports system reviewed and no additional complaints, except as documented, Denies vertigo, Denies dizziness, Denies syncope, Denies headache(s), Denies focal weakness and Denies numbness Psychiatric: Psychiatric: Reports no additional psychiatric complaints Allergic/Immunologic: Allergic/Immunologic: Reports no additional allergic/immunologic complaints and Denies wheezing PMFSH Past Medical History Medical History (Updated 10/10/21 @ 13:51 by Minal Ford APRN) Patient denies medical problems Surgical History Surgical History (Updated 10/10/21 @ 13:51 by Minal Ford APRN) No history of previous surgery Family History Family History Other Unknown family medical history Social History Social History (Updated 10/10/21 @ 13:51 by Minal Ford APRN) Smoking status: Never smoker Second hand tobacco smoke exposure: Yes Substance use: never Living arrangements: with family Occupation/Education: occupation Gender identity (if verbalized by the patient): Female Sexual Orientation (if Verbalized by the Patient): Straight or Heterosexual Spiritual care concerns: No Comments At the time of my signature, I reviewed and agree with the nursing past medical, surgical, social, and family history. There is no relevant family history pertinent to the patient complaint. Exam Const: General: cooperative, healthy appearing, no acute distress, well developed and alert Nutritional Appearance: well nourished Orientation/consciousness: patient oriented x3 Limitations: no limitations HENMT: Head: normal to inspection Ears: external ears normal, TM's normal bilaterally and EAC's normal General nose exam: Normal external nose present Face and sinus: normal facial exam Mouth: Yes Normal ora
[2021-10-10 08:33] VITALS: BP 113/69; PULSE 111; RESP 16; TEMP 37.7; O2SAT 99
== END 2021-10-10 09:05 | disposition home or self-care (01) ==
PROVIDERS: Emergency Provider Nurse Practitioner
DX: J02.0 Streptococcal pharyngitis (principal)
CPT/HCPCS: 87880; 99213; G0463

== ENCOUNTER 2021-10-29 13:25 | Emergency (ER) | payer OTHER, SELFPAY ==
--- NOTE | 2021-10-29 13:27 | ED.URI ---
HPI - URI/Sore Throat General Chief Complaint: Upper Respiratory Infection Stated Complaint: cough Time Seen by Provider: 10/29/21 13:26 Source: patient Mode of arrival: ambulatory Limitations: no limitations History of Present Illness HPI Narrative: Ms. Briceño is a 36-year-old female patient presenting to the clinic today with complaints of a cough, sore throat, and fever x3 days. She reports no known direct exposure to anyone with COVID, had strep throat 3 weeks ago and is concerned that she may have strep again. Related Data Home Medications Medication Instructions Recorded Confirmed vit no.95-ferrous 1 tablet PO DAILY 07/06/20 10/29/21 fumarate 28 mg-folic acid 800 mcg tablet () fluoxetine 10 mg capsule 10 mg PO DAILY 10/29/21 10/29/21 Allergies Allergy/AdvReac Type Severity Reaction Status Date / Time Penicillins Allergy Intermediate Rash Verified 10/29/21 13:32 Review of Systems Review of Systems: Pertinent positives per HPI. Patient denies any fever, chills, rash, headache, visual changes, dizziness, runny nose, sore throat, shortness of breath, chest pain, palpitations, nausea, vomiting, diarrhea, constipation, abdominal pain, or any urinary issues. PMFSH Past Medical History Medical History Patient denies medical problems Surgical History Surgical History No history of previous surgery Family History Family History Other Unknown family medical history Social History Social History Smoking status: Never smoker Second hand tobacco smoke exposure: Yes Substance use: never Gender identity (if verbalized by the patient): Female Sexual Orientation (if Verbalized by the Patient): Straight or Heterosexual Spiritual care concerns: No Comments At the time of my signature, I reviewed and agree with the nursing past medical, surgical, social, and family history. There is no relevant family history pertinent to the patient complaint. Exam Narrative: General: Well-developed, well nourished, in no apparent distress Head: Normocephalic, atraumatic Eyes: Pupils equally round and reactive to light bilaterally, EOM intact, sclera and conjunctive clear, no discharge, lids normal Ears: TMs intact and clear, ear canals clear, no drainage, grossly hearing normal. Nose: Nares patent, clear nasal discharge, no inflammation, no sinus tenderness. Mouth: Oropharynx without lesions or masses, good dentition, MMM. Oropharynx mildly red Neck: Supple, trachea midline, no enlargement of anterior or posterior cervical nodes, no thyroid masses or goiter palpable. Cardio: Regular rate and rhythm, s1 and s2 normal, no murmur appreciated. Resp: Clear to auscultation bilaterally anteriorly and posteriorly, no rhonchi, rales, wheezing or rubs Course Course Emergency Course: Portions of this record may have been created with voice recognition software. Level of Care: Express Care Visit Vital Signs Vital signs: Vital signs reviewed MDM - URI/Sore Throat MDM Narrative Medical decision making narrative: At the time of visit patient is resting comfortably on the exam table. Strep testing negative in the clinic. COVID testing was completed and she was positive. Prescription for paxlovid was sent to her pharmacy and discharge instructions were reviewed with the patient and she voiced understanding of discharge instructions and agrees to treatment plan Differential Diagnosis Differential diagnosis: Likely upper respiratory infection, otitis media, sinusitis, viral infection, bronchitis, influenza, pharyngitis and other (COVID) Discharge Plan Discharge Clinical Impression: COVID-19 Patient Disposition: Home, Self-Care Condition: S
[2021-10-29 13:32] VITALS: BP 120/71; PULSE 125; RESP 16; TEMP 38.9; O2SAT 98
[2021-10-29 13:34] VITALS: BP 120/71; PULSE 125; RESP 16; TEMP 38.9; O2SAT 98
== END 2021-10-29 14:14 | disposition home or self-care (01) ==
PROVIDERS: Emergency Provider Nurse Practitioner Family
DX: U07.1 COVID-19 (principal); E28.2 Polycystic ovarian syndrome
CPT/HCPCS: 87426; 87880; 99213; C9803; G0463

== ENCOUNTER 2022-08-16 08:41 | Emergency (ER) | payer OTHER, SELFPAY ==
--- NOTE | 2022-08-16 08:47 | ED.EYEPROB ---
HPI - Eye Problem General Chief complaint: Eye Problems Stated complaint: Left Eye Irritation Source: patient Mode of arrival: ambulatory Limitations: no limitations History of Present Illness HPI Narrative: Patient is a 37-year-old female that presents with left eye redness, irritation and discharge. Patient states her daughter had pinkeye 10 days ago and it is still going around the daycare. Reports symptoms started at noon yesterday and have worsened since then. Reports this morning right eye started feeling irritated and having mild discharge. Denies any blurred vision or pain. Denies any fever, chills, nausea, vomiting, diarrhea, congestion, ear pain, sore throat, cough. Related Data Home Medications Medication Instructions Recorded Confirmed fluoxetine 10 mg capsule 10 mg PO DAILY 10/29/21 08/16/22 norethindrone (contraceptive) 0.35 0.35 mg PO DAILY 08/16/22 08/16/22 mg tablet vitamin #56-iron 35 mg 1 cap PO DAILY 08/16/22 08/16/22 and 5 mg-folic acid 1 mg-dha capsule Allergies Allergy/AdvReac Type Severity Reaction Status Date / Time Penicillins Allergy Intermediate Rash Verified 08/16/22 08:55 Review of Systems Review of Systems: All systems reviewed & are unremarkable except as noted in HPI and below Constitutional: Constitutional: Denies body ache(s), Denies fever(s), Denies headache(s), Denies malaise and Denies weakness Eyes: Eyes: Denies blurry vision, Reports eye discharge, Reports irritation, Reports itchy eyes, Denies loss of vision and Denies eye pain ENT: Denies otalgia, Denies headache(s), Denies nasal discharge, Denies sinus pain and Denies sore throat Cardiovascular: Cardiovascular: Denies chest pain, Denies irregular heart rhythm and Denies dyspnea Respiratory: Respiratory: Denies dyspnea Gastrointestinal: Gastrointestinal: Denies abdominal pain, Denies diarrhea, Denies nausea and Denies vomiting Musculoskeletal: Musculoskeletal: Denies back pain, Denies myalgias and Denies arthralgias Integumentary/Breasts: Skin/Breast: Denies pruritus and Denies rash Neurologic: Denies headache(s), Denies loss of vision and Denies weakness Psychiatric: Psychiatric: Reports no additional psychiatric complaints Allergic/Immunologic: Allergic/Immunologic: Reports itchy eyes PMFSH Past Medical History Medical History Patient denies medical problems Surgical History Surgical History No history of previous surgery Family History Family History Other Unknown family medical history Social History Social History Smoking status: Never smoker Second hand tobacco smoke exposure: Yes Substance use: never Living arrangements: with family Occupation/Education: occupation Gender identity (if verbalized by the patient): Female Sexual Orientation (if Verbalized by the Patient): Straight or Heterosexual Spiritual care concerns: No Comments At time of signature, agree with nursing past medical, surgical, social and family history. There is no relevant family history pertinent to the presenting complaint. Exam Const: General: cooperative, healthy appearing, comfortable, no acute distress and well nourished Nutritional Appearance: well nourished Orientation/consciousness: patient oriented x3 Limitations: no limitations HENMT: Head: normal to inspection, normocephalic and atraumatic Ears: external ears normal Face/Nose/Sinus: Normal external nose present, normal facial exam and face symmetric Face and sinus: normal facial exam and face symmetric Mouth: Yes lip normal Eyes: General: appearance normal, both eyes and all related structures Visual Mcintyre: normal visual mcintyre by confrontation Alignment and Position: alignment no
[2022-08-16 08:52] VITALS: BP 113/70; PULSE 75; RESP 12; TEMP 37.1; O2SAT 100
== END 2022-08-16 09:10 | disposition home or self-care (01) ==
PROVIDERS: Emergency Provider Nurse Practitioner Family
DX: H10.33 Unspecified acute conjunctivitis, bilateral (principal)
CPT/HCPCS: 99213; G0463

== ENCOUNTER 2024-03-03 06:22 | Inpatient (IN) | payer OTHER, SELFPAY ==
[2024-03-02 08:00] VITALS: BP 124/72; PULSE 72; RESP 20; TEMP 36.6; O2SAT 99
[2024-03-03] VITALS (92 sets, daily range): BP systolic 88–138; BP diastolic 44–113; PULSE 67–185; RESP 12–20; TEMP 36.3–37; O2SAT 97–100; BMI 30.4
--- NOTE | 2024-03-03 06:57 | P.PNAN_ITS ---
Anes - Initial Pre Proc Eval Procedure: Operation Date: 03/16/24 12:00 Proposed Procedures p Repeat Section - Devan Campo MD Date/Time: 03/03/24 06:57 Surgeon: Devan Campo MD Pre Op Diagnosis: C/Section Patient Data Age: 38 Gender: F Height: 1.6 m Weight: 78.1 kg Allergies Allergy/AdvReac Type Severity Reaction Status Date / Time Penicillins Allergy Intermediate Rash Verified 08/16/22 08:55 Home Medications Medication Instructions Recorded Confirmed Type fluoxetine 10 mg capsule 20 mg PO DAILY 10/29/21 02/14/24 History vitamin #56-iron 35 mg 1 cap PO DAILY 08/16/22 02/14/24 History and 5 mg-folic acid 1 mg-dha capsule ferrous sulfate 325 mg (65 mg 325 mg PO DAILY 02/14/24 02/14/24 History iron) tablet Patient hx anesthesia problems: none Family hx anesthesia problems: none Results Review: All pre-operative results and documents have been reviewed as part of the pre- operative evaluation. [facility] Past Medical History Medical History Patient denies medical problems Surgical History Surgical History No history of previous surgery Family History Family History Other Unknown family medical history Social History Social History Smoking status: Never smoker Second hand tobacco smoke exposure: Yes Substance use: never Living arrangements: with family Occupation/Education: occupation Gender identity (if verbalized by the patient): Female Sexual Orientation (if Verbalized by the Patient): Straight or Heterosexual Spiritual care concerns: No Anes - Eval Final PreProcedure Day of Procedure 03/03/24 06:57 Patient weight: overweight Heart: regular rate and rhythm Lungs: clear to auscultation Airway: Mallampati scale class II Neurological: alert and oriented Last oral intake: >/= 8 hours ASA classification: II Emergent: yes Anesthetic plan: proceed Anesthesia type and monitoring: regional epidural and standard monitoring Results Review: All pre-operative results and documents have been reviewed as part of the pre- operative evaluation. Informed Consent: The patient's anesthetic plan and its attendant risks and benefits were discussed with the patient/family/POA. Questions were solicited and answers provided to the satisfaction of the patient/family/POA.
[2024-03-03 07:06] LABS: Basophils Absolute Auto 0.1 K/mm3 (0.0-0.1); Basophils Percent Auto 0.4 % (0.2-1.2); Eosinophils Absolute Auto 0.1 K/mm3 (0-0.3); Eosinophils Percent Auto 0.6 % (0-4.4); Hematocrit 35.7 % (37.0-47.0); Hemoglobin 11.8 g/dL (12.0-15.0); Immature Granulocyte Absolute 0.94 K/mm3 (0.00-0.031); Immature Granulocyte Percent A 6.8 % (0-0.5); Lymphocytes Absolute Auto 2.43 K/mm3 (0.9-3.2); Lymphocytes Percent Auto 17.5 % (18.3-44.2); Mean Corpuscular HGB Conc 33.1 g/dl (32-36); Mean Corpuscular Hemoglobin 31.1 pg (26-34); Mean Corpuscular Volume 94.2 fl (80-100); Mean Platelet Volume 11.6 fl (7.4-10.4); Monocytes Absolute Auto 0.4 K/mm3 (0.1-0.6); Monocytes Percent Auto 3.2 % (2.6-8.5); Neutrophils Absolute Auto 9.9 K/mm3 (1.3-6.7); Neutrophils Percent Auto 71.5 % (45.5-73.1); Nucleated Red Blood Cells Perc 0.1 % (0.0-0.2); Platelet Count Result 185 k/mm3 (150-375); Red Blood Count 3.79 M/mm3 (4.2-5.4); Red Cell Distribution Width 15.4 % (11.5-14.5); White Blood Count 13.9 K/mm3 (4.5-10.0)
[2024-03-03] MEDS: ACETAMINOPHEN 500 MG TABLET 1000 MG PO (07:10)
--- NOTE | 2024-03-03 07:29 | LDADM ---
This patient, Jody Briceño, was admitted to Labor/Delivery/Recovery 119 on 03/03/24 at 06:22. Plans for , pain management and were discussed with patient. Patient/family oriented to hospital policies and general routines including ID bracelet, bed and alarms, visiting hours, pain management, procedures, bathroom and other care routines, personal items, smoking policy, room service/diet and guest tray routines, infant security routines, and visiting hours. Patient/Family are encouraged to report perceived risks to care and to ask questions if they do not understand what they are told or what they should do. See [facility] for further documentation.
[2024-03-03] MEDS: LACTATED RINGERS 1,000 ML 125 ML IV CONT ×2 (07:30→08:30)
[2024-03-03 07:31] LABS: Anisocytosis 1+; Atypical Lymphocytes Present; Platelet Estimate Adequate (Adequate); Schistocytes None Seen
[2024-03-03 07:59] LABS: HIV 1/2 Ab P24 Ag Result Negative (Negative)
[2024-03-03 08:22] LABS: Rapid Plasma Reagin Non-Reactive (NonReactive)
[2024-03-03] MEDS: ONDANSETRON INJ 4 MG/2 ML VIAL IV PUSH ×2 (08:25→14:24)
[2024-03-03] MEDS: FAMOTIDINE 20 MG/2 ML VIAL IV PUSH (08:25)
--- NOTE | 2024-03-03 08:27 | P.HP_ITS ---
H&P: HPI History of Present Illness Date/Time: 03/03/24 08:27 Chief Complaint: Vaginal bleeding Narrative: 38 y/o at 37 3/7 weeks with prior . She woke up to urinate, then had a gush of vaginal bloody fluid, followed by onset of painful contractions. Noted here to have likely SROM, contractions, cervical dilation changing from 1 to 3 cm. Labor diagnosed. She is now comfortable with epidura l. Desires repeat . GBS neg. Review of Systems Review of Systems: All systems reviewed & are unremarkable except as noted in HPI and below PMFSH Past Medical History Medical History (Updated 03/03/24 @ 08:32 by Devan Campo MD) Anxiety Melanoma in situ Patient denies medical problems Surgical History Surgical History History of delivery No history of previous surgery Family History Family History Other Unknown family medical history Social History Social History Smoking status: Never smoker Second hand tobacco smoke exposure: Yes Substance use: never Do You Feel Safe in your Home?: Yes Lack of Transportation: No Lack of Food: Never True Current Housing: I Have Housing Concerned About Future Housing: No Difficulty Paying Gas/Electric Bills: No Difficulty Paying for Meds: No Currently Unemployed: No Education: Master's Degree or Higher Difficulty w/ Childcare or Family Care: No Living arrangements: with family Occupation/Education: occupation Gender identity (if verbalized by the patient): Female Sexual Orientation (if Verbalized by the Patient): Straight or Heterosexual Spiritual care concerns: No Meds Home Medications and Allergies Home Medications Medication Instructions Recorded Confirmed Type fluoxetine 10 mg capsule 20 mg PO DAILY 10/29/21 02/14/24 History vitamin #56-iron 35 mg 1 cap PO DAILY 08/16/22 02/14/24 History and 5 mg-folic acid 1 mg-dha capsule ferrous sulfate 325 mg (65 mg 325 mg PO DAILY 02/14/24 02/14/24 History iron) tablet Allergies Allergy/AdvReac Type Severity Reaction Status Date / Time Penicillins Allergy Intermediate Rash Verified 08/16/22 08:55 Vital Signs Vital Signs - 24 hr 12/03/24 06:50 03/03/24 06:59 03/03/24 07:07 Pulse Rate Blood Pressure Pulse Oximetry 100 100 Oxygen Delivery Room Air 03/03/24 07:09 03/03/24 07:10 03/03/24 07:12 Pulse Rate 100 103 H Blood Pressure 120/72 115/66 Pulse Oximetry 100 Oxygen Delivery 03/03/24 07:13 03/03/24 07:15 03/03/24 07:17 Pulse Rate 97 91 Blood Pressure 123/81 108/67 Pulse Oximetry 100 Oxygen Delivery 03/03/24 07:20 03/03/24 07:21 03/03/24 07:22 Pulse Rate 92 91 Blood Pressure 111/65 114/61 Pulse Oximetry 100 Oxygen Delivery 03/03/24 07:23 03/03/24 07:25 03/03/24 07:27 Pulse Rate 98 89 Blood Pressure 110/61 105/72 Pulse Oximetry 100 Oxygen Delivery 03/03/24 07:28 03/03/24 07:30 03/03/24 07:32 Pulse Rate 101 H 99 Blood Pressure 116/56 L 113/66 Pulse Oximetry 100 Oxygen Delivery 03/03/24 07:33 03/03/24 07:35 03/03/24 07:37 Pulse Rate 97 91 Blood Pressure 113/64 111/62 Pulse Oximetry 100 Oxygen Delivery 03/03/24 07:38 03/03/24 07:42 03/03/24 07:45 Pulse Rate 92 100 Blood Pressure 111/58 L 104/64 Pulse Oximetry 100 Oxygen Delivery 03/03/24 07:47 03/03/24 07:52 03/03/24 07:57 Pulse Rate Blood Pressure Pulse Oximetry 100 100 100 Oxygen Delivery 03/03/24 08:00 03/03/24 08:02 03/03/24 08:07 Pulse Rate 83 Blood Pressure 92/44 L Pulse Oximetry 100 98 Oxygen Delivery 03/03/24 08:12 03/03/24 08:15 03/03/24 08:17 Pulse Rate 96 Blood Pressure 102/62 Pulse Oximetry 100 100 Oxygen Delivery 03/03/24 08:22 Pulse Rate Blood Pressure Pulse Oximetry 100 Oxygen Delivery Exam Const: Orientation/consciousness: patient oriented x3 Other: Well-developed, well-nourished female in no acute distress. Neck: Thyroid: thyroid normal Lymphatic: no lymphadenopathy noted (in neck, axilla or inguinal nodes) Resp: Effort & Inspection: normal respiratory effort Auscultation: clear to auscultation bilaterally Cardio: Rate: regular rate Rhythm: regular rhythm Heart sounds: S1 normal heart sound present and S2 normal heart sound present GI: Other: ABD: Soft, nontender, nondistended, gravid. Vertex. NST good variability. TOCO: contractions every 2 min. No guarding or rebound tenderness. No hepatosplenomegaly. : General: Yes no CVA tenderness Other: Cervix changed from 1 to 3 cm after arrival; 100% effaced. Vertex. Back/Spine/Pelvis: Back: no CVA tenderness Skin: General skin exam: normal color and no rashes or lesions noted Neuro: General: patient oriented x3 Extrem: Other: Extremities: nontender with no edema Psych: Mental Status: mental status grossly normal Affect: normal affect H&P: Results Labs Labs: Short CBC 03/03/24 Range/Units 06:51 WBC 13.9 H (4.5-10.0) K/mm3 Hgb 11.8 L (12.0-15.0) g/dL Hct 35.7 L (37.0-47.0) % Plt Count 185 (150-375) k/mm3 Assessment and Plan Assessment and plan (1) Active labor at term: Status: Acute Assessment and Plan: A: IUP at 37 3/7 weeks with labor, prior , desiring repeat. P: Offered repeat . She understands risks of surgery to include risks of anesthesia, risks of pain, infection, bleeding, blood products, thromboembolic phenomena and damage to adjacent structures such as bowel, bladder, ureters, blood vessels and nerves. She understands all these risks and elects to proceed with surgery. (2) History of delivery: Code(s): Z98.891 - History of uterine scar from previous surgery Status: Acute
[2024-03-03] MEDS: ceFAZolin 2 GM/D5W 50 ML 2 GM/50 ML BAG IVPB (08:32)
--- NOTE | 2024-03-03 08:33 | WPDHPUPDATE1 ---
History and Physical Update Update Date/Time: 03/03/24 08:33 History and Physical has been reviewed, including an updated exam of the patient. There are NO changes in the patient's condition. Risks, benefits, and alternatives have been discussed and questions answered. Patient agrees to proceed with procedure.
--- NOTE | 2024-03-03 09:26 | P.PCNOB_ITS ---
OB - Delivery Note Procedure Delivery date: 03/03/24 Pre-op diagnosis: Previous Delivery (1) Labor at term; 2) Prior ) Post-op Diagnosis: Other (1) Labor at term; 2) Prior ; 3) Abruptio placentae) Induction method: None Delivery monitor: External FHT and External Uterine Procedure Performed: Repeat Surgeon: Devan Campo MD Anesthesia type: Epidural Description of Procedure/Findings: The patient was taken to the operating room where she was prepared and draped in the usual sterile fashion in dorsal supine position with a leftward tilt. She received cefazolin preoperatively. Spinal anesthesia was found to be adequate. A Pfannenstiel skin incision was made, excising the previous scar line. This was carried through to the underlying layer of the fascia. The fascia was incised in the midline and the incision was extended laterally. The fascia was dissected free of the underlying rectus muscles. The rectus muscles were in the midline. The peritoneum was identified, tented up and entered sharply. The peritoneal incision was extended superiorly and inferiorly with good visualization of the bladder. The bladder blade was placed. The vesicouterine peritoneum was identified, tented up and entered sharply. The incision was extended laterally and the bladder flap was developed. The bladder blade was replaced. The uterus was then incised sharply in a transverse fashion along the lower uterine segment. The incision was extended laterally. Bloody fluid noted. The 's head was delivered atraumatically to the sterile field, followed by the body. The nose and mouth were bulb suctioned. After a delay, the cord was clamped and cut. The infant was handed off the field. Cord blood was collected. The placenta was removed manually and was passed off the field. The uterus was exteriorized and cleared of all clots and debris. The uterine incision was reapproximated using 0 Monocryl in a running, locked fashion. Excellent hemostasis resulted as did excellent reapproximation of the normal anatomy. A second, imbricating layer of the same suture was run. The uterus was returned the abdomen. The pelvis was irrigated copiously with warmed normal saline. Rigorous hemostasis was assured. The fascial layer was reapproximated using 0 Vicryl in a running fashion. The skin was closed with a running, subcuticular stitch of 4 0 Vicryl. Dermaflex was applied externally. Sponge, lap, needle and instrument counts were correct. The patient was taken to the recovery room in stable condition. The infant went to the nursery in stable condition. I was present and scrubbed the entire procedure. Specimen: Yes (cord blood, placenta) Estimated Blood Loss: 920 Drains: Yes (arevalo) Packing: No Pathology: Yes (Placenta) Complications: None Disposition: PACU [place] [facility] Date of : 03/03/24 Time of : 08:51 Gestational Age by Date: 38 gender: Female Weight (pounds): 7 Weight (ounces): 4 presentation: vertex Placenta delivery description: Manual Removal Cord Vessel Description: 3 Vessels and Delayed Cord Clamping score one minute: 8 score five minutes: 9
--- NOTE | 2024-03-03 09:30 | PM.OBDSVD ---
DS: Admitting Diagnosis Discharge Date 03/06/24 Admitting Diagnosis IUP at 37 3/7 weeks Labor Prior DS: Discharge Diagnosis Discharge Diagnosis (1) delivery delivered: Code(s): O82 - Encounter for delivery without indication Status: Acute (2) Abruptio placenta: Code(s): O45.90 - Premature separation of placenta, unspecified, unspecified trimester Status: Acute OB - DS: Summary OB Procedures : NST OB Procedures Intrapartum: OB Procedures: : None Peripartum Data Procedures: Procedures Operation Date: 03/16/24 12:00 <No data on this case meets the specified criteria> Time Spent with Patient Time attestation: Total time spent providing and/or coordinating discharge services: DS: Data Data Completed and Pending Labs on day of discharge: Labs from last 24 hours 03/03/24 06:51 WBC 13.9 H RBC 3.79 L Hgb 11.8 L Hct 35.7 L MCV 94.2 MCH 31.1 MCHC 33.1 RDW 15.4 H Plt Count 185 MPV 11.6 H Immature Gran % (Auto) 6.8 H Neut % (Auto) 71.5 Lymph % (Auto) 17.5 L [place] % (Auto) 3.2 Eos % (Auto) 0.6 Baso % (Auto) 0.4 Lymph # (Auto) 2.43 [place] # (Auto) 0.4 Eos # (Auto) 0.1 Baso # (Auto) 0.1 Abs Immat Gran (auto) 0.94 H Absolute Neuts (auto) 9.9 H Absolute Nucleated RBC 0.020 H Nucleated RBC % 0.1 Atypical Lymphocytes Present Platelet Estimate Adequate Anisocytosis 1+ Schistocytes None seen RPR Non-reactive HIV 1&2 Ab/P24 Ag 4thGn Negative Blood Type O Positive Antibody Screen Negative Discharge Plan Discharge Attending physician on discharge: Devan Campo Discharging Clinician: Devan Campo Patient Disposition: Home, Self-Care Activity: may shower, may drive after 2 weeks and pelvic rest Diet: regular Wound Care Instructions: incision open to air Discharge Instructions: Call or return if temperature above 100.4? F, increased abdominal pain, increased vaginal bleeding or any new problems. Stand Alone Forms: General Discharge Information Follow-up/Referrals: Devan Campo MD [Physician] - 4 Weeks Discharge Medications: New ibuprofen 600 mg tablet 600 mg PO Q6H PRN (Reason: cramps) Qty: 30 0RF hydrocodone-acetaminophen 5-325 mg tablet 1 - 2 tablet PO Q6H PRN (Reason: pain) Qty: 30 0RF Continued fluoxetine 10 mg capsule 20 mg PO DAILY PNV #51-abwd-whssd acid-dha 35 mg iron-5 mg iron-1 mg Capsule 1 cap PO DAILY ferrous sulfate 325 mg (65 mg iron) Tablet 325 mg PO DAILY Date of admission: 03/03/24 06:22 Primary Care Provider: PHYSICIAN NOT ON STAFF,NONSTAFF Admitting Provider: Devan Campo Attending physician on admission: Devan Campo Condition: Stable
[2024-03-03] MEDS: LIDOCAINE 5% PATCH 1 PATCH (10:12)
[2024-03-03] MEDS: MORPHINE SULFATE INJ (*CRX) 10 MG/ML AMP 3 MG IV PUSH ×2 (11:09→11:40)
--- NOTE | 2024-03-03 11:51 | OBPPTRN ---
Patient transferred to post room #290 via stretcher. Support person present. Oriented to unit, room, information board, rooming in, admission packet and security measures. Patient verbalizes understanding.
[2024-03-03] MEDS: diphenhydrAMINE HCl INJ 50 MG/ML VIAL 25 MG IV PUSH ×2 (12:24→16:35)
[2024-03-03] MEDS: SIMETHICONE 80 MG TAB.CHEW PO ×2 (13:25→20:02)
[2024-03-03] MEDS: KETOROLAC 15 MG/ML VIAL (*BKC) IV PUSH ×2 (13:25→20:02)
[2024-03-03] MEDS: ACETAMINOPHEN 325 MG TABLET 650 MG PO ×2 (13:25→20:02)
[2024-03-03] MEDS: DEXTROSE 5%/0.45% SOD CHL 1,000 ML 125 ML IV CONT (14:20)
[2024-03-03] MEDS: METOCLOPRAMIDE HCL INJ 10 MG/2 ML VIAL IV PUSH (17:28)
[2024-03-03] MEDS: FAMOTIDINE 20 MG TABLET PO (21:16)
[2024-03-04] MEDS: ACETAMINOPHEN 325 MG TABLET 650 MG PO ×4 (02:30→22:40)
[2024-03-04] MEDS: KETOROLAC 15 MG/ML VIAL (*BKC) IV PUSH (02:30)
[2024-03-04 05:48] LABS: Basophils Absolute Auto 0.1 K/mm3 (0.0-0.1); Basophils Percent Auto 0.4 % (0.2-1.2); Eosinophils Percent Auto 0.3 % (0-4.4); Hematocrit 32.1 % (37.0-47.0); Hemoglobin 10.5 g/dL (12.0-15.0); Immature Granulocyte Absolute 0.13 K/mm3 (0.00-0.031); Immature Granulocyte Percent A 0.8 % (0-0.5); Lymphocytes Absolute Auto 2.53 K/mm3 (0.9-3.2); Lymphocytes Percent Auto 16.4 % (18.3-44.2); Mean Corpuscular HGB Conc 32.7 g/dl (32-36); Mean Corpuscular Hemoglobin 31.3 pg (26-34); Mean Corpuscular Volume 95.5 fl (80-100); Mean Platelet Volume 11.5 fl (7.4-10.4); Monocytes Absolute Auto 0.7 K/mm3 (0.1-0.6); Monocytes Percent Auto 4.6 % (2.6-8.5); Neutrophils Percent Auto 77.5 % (45.5-73.1); Platelet Count Result 162 k/mm3 (150-375); Red Blood Count 3.36 M/mm3 (4.2-5.4); Red Cell Distribution Width 15.4 % (11.5-14.5); White Blood Count 15.5 K/mm3 (4.5-10.0)
[2024-03-04] MEDS: SIMETHICONE 80 MG TAB.CHEW PO ×2 (06:44→16:10)
[2024-03-04] MEDS: DOCUSATE SODIUM 100 MG CAPSULE PO ×2 (06:44→16:10)
[2024-03-04 07:30] VITALS: BP 111/70; PULSE 77; RESP 18; TEMP 36.5; O2SAT 100
--- NOTE | 2024-03-04 07:52 | PM.OBPNVD ---
OB - PN: Subj Subjective Date/time seen: 03/04/24 07:52 Narrative: Pain OK. Tolerating diet. OB - PN: Obj Data Labs 03/04/24 05:30 Labs: Laboratory Results - last 24 hr 03/03/24 03/04/24 06:51 05:30 WBC 15.5 H RBC 3.36 L Hgb 10.5 L Hct 32.1 L MCV 95.5 MCH 31.3 MCHC 32.7 RDW 15.4 H Plt Count 162 MPV 11.5 H Immature Gran % (Auto) 0.8 H Neut % (Auto) 77.5 H Lymph % (Auto) 16.4 L [place] % (Auto) 4.6 Eos % (Auto) 0.3 Baso % (Auto) 0.4 Lymph # (Auto) 2.53 [place] # (Auto) 0.7 H Eos # (Auto) 0.0 Baso # (Auto) 0.1 Abs Immat Gran (auto) 0.13 H Absolute Neuts (auto) 12.0 H Absolute Nucleated RBC 0.000 Nucleated RBC % 0.0 RPR Non-reactive HIV 1&2 Ab/P24 Ag 4thGn Negative Antibody Screen Negative OB - PN A/P Plan day: 1 Comments: A: POD#1, doing well. P: Routine care. Exam Narrative: AVSS I/O OK ABD soft, nontender, fundus firm. Incision c/d/i. EXT nontender
--- NOTE | 2024-03-04 10:00 | PC.NURSE ---
Met with patient to assess and discuss needs related to feeding. Mother states it is her intention to [combo feed]. Encouraged mother to breastfeed or pump 8-12 times in 24 hours (approximately every 2-3 hours). Mother educated on milk production, supply and demand, and expectations for /pumping in the immediate period. Encouraged consistent pumping if baby doesn't go to breast to support her milk supply. Mother instructed to call for assistance if infant will not feed every 3 hours, if there is discomfort with /pumping, or if mother has any other questions or concerns. resources provided including the Mom and Baby Guide and name/number on communication board. Mother verbalized understanding. Updated patient?s primary RN with education provided.??
--- NOTE | 2024-03-04 10:16 | PC.NURSE ---
On 03/04/24, the student, Orin Arguelles, provided care and completed [facility] documentation on this patient. I have reviewed the student's documentation and agree with the findings.
[2024-03-04] MEDS: LIDOCAINE 5% PATCH 1 PATCH TRANSDERM ×2 (10:25→16:16)
[2024-03-04] MEDS: IBUPROFEN 600 MG TABLET PO ×3 (10:25→22:40)
--- NOTE | 2024-03-04 13:40 | WPDANLDNPN2 ---
Anes-Prog Note L&D-Neuraxial Date/Time: 03/04/24 13:40 Neuraxial medications: epidural PF morphine Opiod-related complaints: none Patient feedback: Patient satisfied with post-operative pain management.
--- NOTE | 2024-03-04 13:40 | WPDANLDPN2 ---
Anes-Prog Note L&D Date/Time: 03/04/24 13:40 Comfortable throughout: labor and delivery Neuraxial method: epidural Epidural/Spinal procedure site: clean & non-tender Neuro status: Neuro function grossly intact. Cardiovascular status: normal Respiratory status: normal Airway patency: baseline Mental status: baseline Post-Op hydration status: normal Vital Signs: Last Vital Signs Temp 97.7 F 03/04/24 07:30 Pulse 77 03/04/24 07:30 Resp 18 03/04/24 07:30 BP 111/70 03/04/24 07:30 Pulse Ox 100 03/04/24 07:30 O2 Del Method Room Air 03/03/24 23:30 Pain score (VAS): 0/10 I/O: Intake & Output 03/03/24 03/04/24 03/04/24 23:59 07:59 15:59 Intake Total 1000 340 Output Total 1775 Balance 1000 -1435 Post-procedural complaints: none Patient feedback: Patient satisfied with anesthetic care.
[2024-03-04 19:45] VITALS: BP 129/82; PULSE 86; RESP 14; TEMP 36.7; O2SAT 97
[2024-03-04] MEDS: HYDROcodone/acetaminophen (*CRX) 5-325 MG TABLET 1 TAB PO (20:08)
[2024-03-05] MEDS: IBUPROFEN 600 MG TABLET PO ×4 (04:22→23:18)
[2024-03-05] MEDS: ACETAMINOPHEN 325 MG TABLET 650 MG PO ×4 (04:22→23:18)
[2024-03-05 07:30] VITALS: BP 112/76; PULSE 76; RESP 16; TEMP 37.4; O2SAT 99
[2024-03-05] MEDS: SIMETHICONE 80 MG TAB.CHEW PO ×2 (07:40→16:17)
[2024-03-05] MEDS: HYDROcodone/acetaminophen (*CRX) 5-325 MG TABLET 1 TAB PO ×2 (07:40→19:10)
[2024-03-05] MEDS: DOCUSATE SODIUM 100 MG CAPSULE PO ×2 (07:40→16:17)
--- NOTE | 2024-03-05 08:30 | PC.NURSE ---
Introductions were made, then consulted with patient to assess needs related to . Discussed with mother her?plans to feed?her and the?experience so far. Mom states that she is okay if baby goes to breast just a few times a day. She hasn't done any pumping even though she has been educated that the more she stimulates her breasts the better her supply will be. She doesn't want to pump until her milk comes in, though she does have a history of a low milk production. She seems happy with continuing to feed mostly bottle and some breast. Resources provided for inpatient and outpatient services with the feeding sheet, mom/baby guide and name/number written on the communication board. Mother voiced understanding of information and will call if there is a request for assistance. Reported to the Primary RN.
--- NOTE | 2024-03-05 09:04 | PM.OBPNVD ---
OB - PN: Subj Subjective Date/time seen: 03/05/24 09:04 Narrative: Pain OK. Tolerating diet. OB - PN: Obj Data Labs 03/04/24 05:30 OB - PN A/P Plan day: 2 Comments: A: POD#2, doing well. P: Routine care. Exam Narrative: AVSS I/O OK ABD soft, nontender, fundus firm. Incision c/d/i. EXT nontender
[2024-03-05] MEDS: LIDOCAINE 5% PATCH 1 PATCH TRANSDERM (10:25)
[2024-03-05 19:51] VITALS: BP 134/76; PULSE 73; RESP 16; TEMP 36.3; O2SAT 97
[2024-03-06] MEDS: IBUPROFEN 600 MG TABLET PO (05:59)
[2024-03-06] MEDS: ACETAMINOPHEN 325 MG TABLET 650 MG PO (05:59)
[2024-03-06] MEDS: DOCUSATE SODIUM 100 MG CAPSULE PO (08:05)
[2024-03-06] MEDS: HYDROcodone/acetaminophen (*CRX) 5-325 MG TABLET 1 TAB PO (08:05)
[2024-03-06] MEDS: SIMETHICONE 80 MG TAB.CHEW PO (08:05)
[2024-03-06 08:15] VITALS: BP 129/83; PULSE 61; RESP 16; TEMP 37.2; O2SAT 99
--- NOTE | 2024-03-06 09:00 | PM.OBPNVD ---
OB - PN: Subj Subjective Date/time seen: 03/06/24 09:00 Narrative: Pain OK. Tolerating diet. Would like to go home. OB - PN: Obj Data Labs 03/04/24 05:30 OB - PN A/P Plan day: 3 Comments: A: POD#3, doing well. P: Home to f/u 4 weeks. Exam Narrative: AVSS ABD soft, nontender, fundus firm. Incision c/d/i. EXT nontender
--- NOTE | 2024-03-06 09:07 | PC.NURSE ---
Mother plans to begin pumping once she is home. Education provided on pumping as soon as possible to protect her milk supply. Mother understands but insist that she will wait until she is home to begin pumping. is receiving formula primarily at this time. Mother denies any further education and will call this RN if any questions or concerns arise.
[2024-03-09 11:23] VITALS: BP 129/76; PULSE 61; RESP 18; TEMP 36.6; O2SAT 100
== END 2024-03-06 11:41 | disposition home or self-care (01) | DRG 786 ==
LOC: ANHLDR 11:33 → ANHOB2 12:00
PROVIDERS: Admitting Provider Obstetrics & Gynecology; Visit Provider Obstetrics & Gynecology
PROC: 10D00Z1 Extraction of Products of Conception, Low, Open Approach (ICD-10-PCS; CPT 59514; principal; 2024-03-03 07:30)
DX: O34.211 Maternal care for low transverse scar from previous cesarean delivery (principal); O45.93 Premature separation of placenta, unspecified, third trimester; Z37.0 Single live birth; Z3A.37 37 weeks gestation of pregnancy; Z85.820 Personal history of malignant melanoma of skin
CPT/HCPCS: 36415; 85025; 86592; 86703; 86850; 86900; 86901; 88307; A9270; G0432; J0690; J1200; J1885; J2270; J2274; J2371; J2405; J2590; J2765; J7120